=== PATIENT | male | born 1945 | race Caucasian/White ===

== ENCOUNTER 2016-11-29 07:46 | Inpatient (IN) | payer MEDICARE, OTHER ==
[2016-11-29] VITALS (12 sets, daily range): BP systolic 120–151; BP diastolic 57–78; PULSE 68–81; RESP 16–24; O2SAT 91–95
[~2016-11-29] VITALS: Ht 170.2 cm; Wt 133.9 kg
[~2016-11-29 07:46] MED LIST: ACLI400A2 IH; ALBU2.5V4 INHALATION; ALBU90AE IH; ASPI-973 PO; CLOP75TA3 PO; IPRA3AMP IH; LISI10TA PO; METO25TA6 PO; NITR0.4T6 SL; SIMV20TA4 PO; SYMINH INHALATION; [UNRECOGNIZED DRUG - OTHER]
[2016-11-29] MEDS ORDERED: Albuterol-Ipratropium 3 mL Inhalation Solution ONE (08:07)
--- NOTE | 2016-11-29 08:14 | ED.REPORT ---
HPI-General Illness Date of Service Nov 29, 2016 ED Provider: Kaden Duncan MD 71 year old male with a history of COPD on 3L home O2, bovine aortic valve replacement on ASA and Plavix and a former smoker who presents to the ED due to SOB that is worse with exertion that has been progressively worsening over the last 2 weeks. The symptoms are similar to previous COPD exacerbations. He has been using nebs at home with no improvement and Albuterol 3-4 times daily. Pt was started on Prednisone 2 days ago by his PCP for this and has had no improvement in symptoms. Pt denies fever, chills, CP, nausea and vomiting. Pt has had no recent illnesses. He has a Hx of colon cancer and reports slight abd pain. He has no hx of PE/DVT. Nursing Notes Stated Complaint: DIFFICULTY BREATHING Chief Complaint: Respiratory Complaints Nursing Notes Reviewed: Yes Allergies: Coded Allergies: aspirin (Verified Allergy, Severe, hives,swelling,itching (pt is taking 81 mg daily), 11/29/16) iodine (Verified Allergy, Severe, HIVES,SWELLING, 11/29/16) PATIENT SAYS ALLERGY IS TO SHELLFISH ONLY, NOT CONTRAST MEDIA Sulfa (Sulfonamide Antibiotics) (Unverified Allergy, Unknown, UNKNOWN, ) cephalexin (Unverified Allergy, Unknown, UNKNOWN, 11/29/16) venlafaxine (Unverified Allergy, Unknown, UNKNOWN, 11/29/16) Uncoded Allergies: EXPECTORANTS (Allergy, Unknown, UNKNOWN, 10/11/14) Nonsteroidal Anti-Inflammatory Agts (Allergy, Unknown, UNKNOWN, 10/11/14) Scheduled Aclidinium [place] (Tudorza Pressair) 400 Mcg Aer.pow.ba 400 MCG IH BID Albuterol Sulfate (Proair Respiclick) 90 Mcg Aer.pow.ba 90 MCG IH QID Aspirin (Aspirin) 81 Mg Tablet 81 MG PO DAILY Budesonide/Formoterol 160-4.5 mcg Inh (Symbicort 160-4.5 mcg Inh) 120 Puff Inhaler 1 PUFF INHALATION every 2 days in am a Clopidogrel Bisulfate (Plavix) 75 Mg Tablet 75 MG PO DAILY Lisinopril (Lisinopril) 10 Mg Tablet 10 MG PO DAILY Metoprolol Tartrate (Metoprolol Tartrate) 25 Mg Tablet 25 MG PO BID Nitroglycerin SL (Nitroglycerin SL) 0.4 Mg Tab.subl 0.4 MG SL ASDIRECTED Simvastatin (Simvastatin) 20 Mg Tablet 20 MG PO HS Scheduled PRN Albuterol Neb Soln (Albuterol Neb Soln) 2.5 Mg/3 Ml Vial.neb 2.5 MG INHALATION Q4H PRN PRN For Shortness of Breath Ipratropium/Albuterol Sulfate (Iprat-Albut 0.5-3(2.5) mg/3 mL Inhalant Soln) 3 Ml Ampul.neb 3 ML IH Q6 PRN PRN PRN Miscellaneous Medications ([CT scan premeds]) prednisone: 50mg, #3 take one tablet by mouth 13, 7, 1 hr prior to scan benadryl: 50mg, #1 take one tablet by mouth 1 hr prior to scan General Time Seen by MD: 08:09 Chief Complaint Breathing problem Hx Obtained From: Patient, Spouse Arrived By: Walk-in Onset Occurred: More than a week ago... (2 weeks) Symptom Duration: Since onset Severity: Current: No pain currently Associated with: Denies: Chest pain, Nausea, Vomiting Pertinent Negative: Relieved by nothing Past Medical History Past Medical History Colon cancer COPD on 3L home O2 TIARRA- on CPAP Paralized hemidiaphragm Reports: Asthma, Coronary artery disease, Hypertension Past Surgical History Hips Bovine aortic valve replacement Colon resection Reports: Angioplasty, Cataract surgery Smoking History Current Some Day Smoker Social History Other Social History: Ambulatory Status Independent Review of Systems Full Review of Systems Constitutional: Denies: Chills, Fever Respiratory: Reports: Dyspnea on exertion, Shortness of breath, Denies: Non-productive cough Cardiovascular: Reports: Dyspnea on exertion, Denies: Chest pain GI: Denies: Abdominal pain, Diarrhea, Nausea, Vomiting Skin: Denies Diaphoresis, Denies Rash Neurologic: Denies: Change LOC, Headache Complete sys rev & neg: except as marked. Physical Exam 93% on 3L by NC which is baseline Vital Signs Vital Signs Date Time Temp Pulse Resp B/P Pulse Ox O2 Delivery O2 Flow Rate FiO2 11/29/16 10:16 75 24 129/71 95 Nasal Cannula 3 11/29/16 09:30 75 22 141/61 93 Nasal Cannula 3 11/29/16 09:08 72 22 93 Nasal Cannula 11/29/16 09:00 72 20 142/57 93 Nasal Cannula 3 11/29/16 08:30 74 22 140/59 93 Nasal Cannula 3 11/29/16 08:12 76 23 93 Nasal Cannula 3 11/29/16 08:00 36.9 81 21 151/73 92 Nasal Cannula 3 Initial VS: Reviewed General/Constitutional: Awake, Alert, Cooperative Head / Eyes: Atraumatic, Normocephalic, PERRL Neck: Atraumatic, Full range of motion Respiratory: Significantly decreased breath sounds bilat Prolonged expiratory phase Expiratory wheezing Cardiovascular: Heart rate NL, Regular rhythm, Heart sounds NL, No gallop, No murmurs, No rubs, Cap refill not delayed, Peripheral circulation NL 1+ pitting edema to bilat LE about 2[address] up to the knees Abdomen: Soft, Non-tender, No guarding, No rebound, No distention Back: Atraumatic, Full range of motion Skin: No rash, Warm, Dry Neurologic: Oriented X3, Speech NL, No motor deficits Psychiatric: Affect NL, Mood NL Interpretation & Diagnostics Lab Results Interpretation Result Diagram: 11/29/16 0910 11/29/16 0910 Test 11/29/16 09:10 White Blood Count 8.5th/mm3 (3.8-10.1) Red Blood Count 4.60mil/mm3 (4.40-5.80) Hemoglobin 14.2g/dL (13.8-17.2) Hematocrit 43.7% (41.0-50.0) Mean Corpuscular Volume 95.0fL (81-100) Mean Corpuscular Hemoglobin 30.9pg (27.0-35.0) Mean Corpuscular Hemoglobin Concent 32.5% (32.0-37.0) Red Cell Distribution Width 13.8% (12.3-15.4) Platelet Count 157bil/L (150-400) Neutrophils (%) (Auto) 69.9% (40-74) Lymphocytes (%) (Auto) 18.6% (14-46) Monocytes (%) (Auto) 9.5% (4-12) Eosinophils (%) (Auto) 0.9% (0-5) Basophils (%) (Auto) 0.5% (0-3) Sodium Level 147mEq/L (134-144) Potassium Level 4.2mEq/L (3.5-5.2) Chloride Level 105mEq/L (97-108) Carbon Dioxide Level 29mmol/L (18-29) Blood Urea Nitrogen 24mg/dL (8-27) Creatinine 1.31mg/dL (0.76-1.27) Estimat Glomerular Filtration Rate 57mL/min (>59) Glucose Level 148mg/dL (60-99) Calcium Level 9.2mg/dL (8.5-10.1) Total Bilirubin 0.5mg/dL (0.0-1.2) Aspartate Amino Transf (AST/SGOT) 19U/L (0-50) Alanine Aminotransferase (ALT/SGPT) 33U/L (0-44) Alkaline Phosphatase 61U/L (25-160) Troponin T 0.010ug/L (0.0-0.011) Pro-B-Type Natriuretic Peptide 187.5pg/mL (0-376) Total Protein 6.3g/dL (6.4-8.4) Albumin 3.9g/dL (3.4-5.0) General Lab Results Interp 1: Labs reviewed ECG Interpretation ECG Interpretation: LAD, No ST segment changes, Inferior Q waves, Anteroseptal Q waves. No acute T wave abnormalities. No prior ECG for comparison. Time: 09:02 Interpreted by: ED physician Normal ECG Interpretation: Normal rate (71), Normal sinus rhythm X-Ray Chest Interpretation Chest Xray Interpretation: IMPRESSION: Chronic right hemidiaphragm elevation. Right basilar opacity may be pneumonia or atelectasis. Dictated by: Esteban Dias M.D. on 11/29/2016 at 9:20 View: Portable Interpretation / Wet Read by: Interpret - Radiologist Re-Eval/Medical Decision Med Decision/Clinical Course 71 year old male with a history of COPD on 3L home O2, bovine aortic valve replacement on ASA and Plavix and a former smoker who presents to the ED due to SOB that is worse with exertion that has been progressively worsening over the last 2 weeks despite recently being started on oral steroids and using his home inhalers. Upon arrival the patient appears to be in moderate respiratory distress with oxygen saturation in the low 80s on 3 L by nasal cannula which is his baseline requirement. He is otherwise hemodynamically stable. The patient was initially treated with the below medications 125 IV methylprednisone Azithromycin 600 PO DuoNeb treatments 3 Laboratory studies notable as below: CBC unremarkable NA 147 BUN 24 Creat 1.31 BNP WNL Troponin negative CMP Otherwise unremarkable Chest x-ray was obtained and demonstrated known elevated right hemidiaphragm with possible small focality of opacification. The above treatments patient reported mild symptom improvement though when ambulated on his baseline 3 L of oxygen he continued to desat into the 80s and became significantly dyspneic. Overall presentation was consistent with COPD exacerbation. I am unconvinced of focal bacterial pneumonia given absence of fever or leukocytosis. I considered cardiogenic causes however at this time EKG as interpreted by myself above is not convincing for acute ischemic process and initial screening troponin is negative. Chest x-ray chemistry is no pulmonary edema and BNP is not elevated. I feel the patient requires admission for further management of his COPD exacerbation and hypoxia. Patient was discussed with admitting hospitalist transferred in stable condition. Time of Eval: 08:36 Re-Evaluation/Progress Note: No significant improvement with neb treatment. Time of Eval: 09:35 Re-Evaluation/Progress Note: Desat to high 80 with ambulation Consultation : Referral / Consult Name: Everette Baig MD Consulted With: Hospitalist Call Returned at: 10:43 Personal Protection Specialist: Will see patient, Agrees with eval, Agrees with plan, Accepts admit Counseled Regarding: Diagnosis, Lab results, Need for admission Discharge & Departure Primary Impression: COPD exacerbation Additional Impressions: Hypoxia Respiratory distress History of tobacco abuse Lower extremity edema Laterality: bilateral Qualified Code: R60.0 - Localized edema Disposition: ADMITTED TO HOSPITAL Discharge Condition All VS Reviewed: Yes Referrals: Cleo Ellison MD (PCP) Crit Care Except Billable Proc Time Spent: 105-134 minutes Services Performed: Patient management by me, Time spent at bedside, Reviewing test results, Reviewing imaging, Discussing patient care, Documentation in record Scribe Attestation Portions of this note were transcribed by Brittany Neal. I, (Dr. Duncan) personally performed the history, physical exam and medical decision-making; I reviewed and confirmed the accuracy of the information in the transcribed note. Signed by: Brittany Neal. Prabhaibe, 11/29/2016, 1043 copies to: Cleo Ellison MD, Beck O MD Nov 29, 2016 08:14 Brittany Neal Nov 29, 2016 08:40
[2016-11-29] MEDS ORDERED: MethylprednisoLONE Sodium Succinate 62.5 mg/mL 2 mL Inj IVPUSH ONE (08:45)
[2016-11-29] MEDS ORDERED: Ondansetron 2 mg/mL 2 mL Inj IVPUSH PRN ×3 (08:50→11:35)
[2016-11-29] MEDS ORDERED: Albuterol-Ipratropium 3 mL Inhalation Solution NEB ONE (08:50)
[2016-11-29] MEDS ORDERED: Alum-Mag Hydrox-Simeth 30 mL Suspension PO PRN ×3 (08:50→11:35)
[2016-11-29] MEDS: Albuterol-Ipratropium 3 mL Inhalation Solution NEB SCH (09:06)
--- NOTE | 2016-11-29 09:21 | DRSVH ---
PROCEDURE: X-RAY CHEST ONE VIEW, PORTABLE ([id number]) INDICATIONS: breathing problems TECHNIQUE: One view of the chest was acquired. COMPARISON: [facility], CT, CT NECK CHEST ABD PELVIS W CON, 10/23/2016, 11:05. [facility] juliane, CR, CHEST 2VW, 09/01/2016, 10:56 AM. [facility], CR, CHEST 1VW (PORTABLE), 012, 14:46. FINDINGS: Surgical changes and devices: Sternotomy and a prosthetic heart valve. Lungs and pleura: There is chronic right hemidiaphragm elevation. Right basilar opacity may be infilt rate or atelectasis. No pleural effusions or pneumothorax. Lungs are clear. Mediastinum: Mediastinal contours appear normal. Heart size is normal. Bones and chest wall: No suspicious bony lesions. Overlying soft tissues appear unremarkable. IMPRESSION: Chronic right hemidiaphragm elevation. Right basilar opacity may be pneumonia or atelecta sis. Dictated by: Esteban Dias M.D. on 11/29/2016 at 9:20 Approved by: Esteban Dias M.D. on 11/29/2016 at 9:21
[2016-11-29 09:23] LABS: BASOPHILS % (AUTO) 0.5 % (0-3); EOSINOPHILS % (AUTO) 0.9 % (0-5); MONOCYTES % (AUTO) 9.5 % (4-12); Mean Corpuscular Hemoglobin 30.9 pg (27.0-35.0); NEUTROPHILS % (AUTO) 69.9 % (40-74); Platelet Count 157 bil/L (150-400)
[2016-11-29 09:57] LABS: TROPONIN T 0.01 ug/L (0.0-0.011)
[2016-11-29] MEDS ORDERED: Polyethylene Glycol (PEG) 17 Gm Powder PO PRN ×2 (10:45→11:35)
--- NOTE | 2016-11-29 11:05 | NUR ---
Admit Report received from ED nurse. Pt admitted to the floor from ED at 11:05. Pt SBA to bed from stretcher. 3L of oxygen in use. Pt A&O x 4. Pt exhibited SOB while transferring into bed. SOB was relieved once he was at rest. Med rec complete.
[2016-11-29] MEDS ORDERED: GABA-500 ORAL (11:32)
[2016-11-29] MEDS ORDERED: ATOR20TA65 ORAL (11:32)
[2016-11-29] MEDS ORDERED: PRE20 ORAL (11:42)
[2016-11-29] MEDS ORDERED: PRED50TA ORAL (11:44)
[2016-11-29 20:38] LABS: APPEARANCE,URINE CLEAR (CLEAR,HAZY); COLOR,URINE YELLOW (YELLOW); OCCULT BLOOD,URINE NEGATIVE (NEGATIVE); PH,URINE 5.5 (5.0-8.0); UROBILINOGEN,URINE NORMAL (NORMAL)
--- NOTE | 2016-11-29 22:57 | PCM.HPMED ---
Subjective Date of Service Nov 29, 2016 Primary Provider: Admitting Physician: Everette Baig MD Primary Care Physician: Cleo Ellison MD Attending Physician: Everette Baig MD Admit Status: From the Emergency Department, Admit to Red Team Chief Complaint: "My oxygen level drops when I go to the bathroom." History of Present Illness: Patient is a 71-year-old pleasant obese white male with history of COPD on 3 L of home O2 per nasal cannula and bovine aortic valve replacement on aspirin and Plavix who presents to [facility] emergency department due to shortness of breath is worse with exertion that has been progressively worsening over the last 2 weeks. The symptoms are somewhat her previous COPD exacerbations. He has been using nebulizers at home with no improvement and albuterol 3-4 times a day. Patient was started on prednisone 3 days ago by his primary care physician for this problem and has had no improvement in symptoms. Patient denies fever, chills, chest pain, nausea and vomiting, cough. He has had no recent illness. He does report that he has a history of colon cancer and more recent most recently a CAT scan showed "spots" in his abdomen. He was going to go for a another scan which he does not know the name of but could not hold his arms up in the air long enough for the procedure. Patient was evaluated by Dr. Kaden Duncan and had a chest x-ray which showed chronic right hemidiaphragm elevation with right basilar opacity which may be pneumonia or atelectasis. Patient received 125 mg of IV methylprednisolone, 600 mg of by mouth azithromycin and DuoNeb treatments 3 the above treatments repeated with the above treatment patient reported mild symptom improvement bone ambulated on his baseline 3 L of oxygen as he continued to desaturate into the 80s and became significantly dyspneic overall presentation was consistent with a COPD exacerbation and patient was admitted to the hospital service for further evaluation and treatment. Review of Systems: General: Patient has no fever no chills no sweats. He only complains of dyspnea on exertion. HEENT: Patient has no headache, patient has no diplopia, patient has no changes in vision. Does have a history of bilateral cataract surgery and glaucoma surgery. He had glaucoma surgery most recently and is currently off all drops and is scheduled to see his call center consultant on 12/17/2016. He does wear glasses. Patient has no problems with his ears nose or throat. Patient has known dental problems, as he wears upper dentures. Patient has no pharyngitis or history of thrush. Neck: Patient has no stiffness in the neck. Patient has no lymphadenopathy. Patient has no problems with his neck. Pulmonary: Patient has no cough, no expectoration of sputum. He has no pleurisy. Patient has no chest pain. Patient has a history of asthma as a child, and now has COPD. He was discovered to have right hemidiaphragm elevation even before his open heart surgery. He states he tried to fix his problem" during the open heart surgery but were unsuccessful. Cardiovascular: Patient has no chest pain. Patient has no palpitations. Patient has no history of myocardial infarction. Patient has a history of coronary disease and aortic valvular disease. Patient underwent coronary artery bypass graft surgery 2 along with bovine aortic valve replacement at a [facility] on 10/19/[address] Demetri Sherwood. Gastrointestinal: Patient has no history of hepatitis A, B or C. Patient has no history of peptic ulcer disease. Patient has no history of gastroesophageal reflux disease. Patient has no history of nausea, vomiting, or diarrhea. Patient has no history of hematemesis, hematochezia, or melena. Patient has no history of colitis. Renal: Patient has no history of chronic kidney disease. No history of kidney stones. However, approximately 8-10 years ago patient developed acute renal failure due to nausea vomiting and diarrhea. This was treated with IV re- hydration and patient kidney failure resolved. Genitourinary: Patient has no history of dysuria, frequency, or incontinence. Patient has no previous history of genitourinary problems. Musculoskeletal: Patient has no history of muscular skeletal problems. Neurologic: Patient has no history of stroke, no history of seizure, no history of TIA. Psychiatric: Patient has no history of psychiatric problems. The remainder of the complete review of systems was reviewed with patient and is as mentioned above otherwise negative. Allergies Coded Allergies: aspirin (Verified Allergy, Severe, hives,swelling,itching (pt is taking 81 mg daily), 11/29/16) iodine (Verified Allergy, Severe, HIVES,SWELLING, 11/29/16) PATIENT SAYS ALLERGY IS TO SHELLFISH ONLY, NOT CONTRAST MEDIA Sulfa (Sulfonamide Antibiotics) (Unverified Allergy, Unknown, UNKNOWN, ) cephalexin (Unverified Allergy, Unknown, UNKNOWN, 11/29/16) venlafaxine (Unverified Allergy, Unknown, UNKNOWN, 11/29/16) Uncoded Allergies: EXPECTORANTS (Allergy, Unknown, UNKNOWN, 10/11/14) Nonsteroidal Anti-Inflammatory Agts (Allergy, Unknown, UNKNOWN, 10/11/14) Home Medications Scheduled medications: Aclidinium [place] (Tudorza Pressair) 400 Mcg Aer.pow.ba 400 MCG IH BID Albuterol Sulfate (Proair Respiclick) 90 Mcg Aer.pow.ba 90 MCG IH QID Aspirin (Aspirin) 81 Mg Tablet 81 MG PO DAILY Budesonide/Formoterol 160-4.5 mcg Inh (Symbicort 160-4.5 mcg Inh) 120 Puff Inhaler 1 PUFF INHALATION every 2 days in am a Clopidogrel Bisulfate (Plavix) 75 Mg Tablet 75 MG PO DAILY Lisinopril (Lisinopril) 10 Mg Tablet 10 MG PO DAILY Metoprolol Tartrate (Metoprolol Tartrate) 25 Mg Tablet 25 MG PO BID Nitroglycerin SL (Nitroglycerin SL) 0.4 Mg Tab.subl 0.4 MG SL ASDIRECTED Simvastatin (Simvastatin) 20 Mg Tablet 20 MG PO HS PMH Colon cancer diagnosed approximately 3 years ago. Patient underwent colon resection and was placed on "pills" by Dr. Foss who most recently did a CAT scan and found more spots" COPD on 3L home O2 with hypoxia with any exertion TIARRA- on CPAP at home and patient is compliant. His brought in his CPAP machine for use here in the hospital. Paralized right hemidiaphragm, etiology unknown. History of Asthma as a child. Coronary artery disease, ports history of stent placement and then bypass or "fixing his stents". Hypertension Surgical History Patient reports bilateral Hip replacement surgery. However, his left leg is slightly shorter than his right leg. This surgery was performed in assembly line fashion in a hospital in [facility]. Bovine aortic valve replacement at the [facility] in [facility] and [place]. Patient reports stent replacement surgery and/ or bypass surgery as well. Colon resection approximately 3 years ago. Coronary artery Angioplasty with stent placement in the past. History of bilateral Cataract surgery History of glaucoma surgery recently. Patient just recently finished taking his eyedrops and has a follow-up appointment 12/17/2016 Family History Patient mother at the age of 38 from a infection, after delivering the patient. Patient's father at 56 from a stroke and heart disease Patient had 5 brothers to have . One from complications of a stroke , the other after a leg amputation. Patient had 2 sisters one of complications from diabetes mellitus Social History Hx Alcohol Use: Yes (The patient will occasionally have a beer or a mixed drink approximately 1-2 per week he prefers rum and coke or beer.) Hx Substance Use: No Hx Tobacco Use: Yes (Quit one month ago. ) Smoking Status: Former Smoker (The patient quit smoking 15-20 years ago. He smoked 1 pack per day for 8-10 years.) Living Arrangement: with Family Additional Information Patient was raised in the [place] area and went to [employer]. 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 He worked for [employer] for some period time and then worked for the [employer] for 18 years. 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 He rarely drinks alcohol possibly a beer or rum and Coke once or twice a week. He was to his first for 38 years. They adopted 2 children. The marriage ended after the patient discovered that his was constantly traveling and purchasing items while he was left at home to work. He has been to his second for 10 years. He used to winter in [facility], however no longer does so. He has never had valley fever. Exam Vital Signs Vital Sign - Last Date Time Temp Pulse Resp B/P Pulse Ox O2 Delivery O2 Flow Rate FiO2 11/29/16 19:55 36.4 68 16 148/78 91 Nasal Cannula 2.00 Exam General: Patient is in no apparent distress and is lying supine in bed with head elevated approximately 10-20. HEENT: Head is atraumatic normocephalic. Eyes: Pupils are equally round and reactive to light and accommodation. Extraocular muscles are intact. Sclera are white anicteric. Subconjunctival mucosa is pink. Ears and nose are unremarkable. Oropharynx: There is no mucosal lesions, there is no thrush, there is no pharyngitis. There is a upper plate of dentures in place. Neck: Is supple, there are no nodes, or masses or tenderness. Chest: Is clear to auscultation and percussion. There are no rales, rhonchi, wheezes or rubs. Heart: Rate, rhythm is regular. There is no murmur, rub or gallop. Abdomen: Good bowel sounds are present. Abdomen is soft, nontender, no organomegaly or masses were appreciated. Extremities: Are symmetrical and well perfused. There is no edema, there is no cellulitis, no rash. Neurologic: There are no focal neurological deficits. Cranial nerves II through XII are intact. There are no sensory or motor deficits. Psychiatric: Patients mood is calm and shows no sign of agitation. Genital: Deferred Rectal: Deferred Lab and Diagnostics Result Diagram: 11/29/1690911/29/16909 Microbiology Blood cultures are pending X-Rays, CTs and MRIs PROCEDURE: X-RAY CHEST ONE VIEW, PORTABLE ([id number]) INDICATIONS: breathing problems TECHNIQUE: One view of the chest was acquired. COMPARISON: [facility], CT, CT NECK CHEST ABD PELVIS W CON, 2015, 11:05. [facility], CR, CHEST 2VW, 09/01/2016, 10:56 AM. [facility], , CHEST 1VW (PORTABLE), 06/27/2012, 14:46. FINDINGS: Surgical changes and devices: Sternotomy and a prosthetic heart valve. Lungs and pleura: There is chronic right hemidiaphragm elevation. Right basilar opacity may be infiltrate or atelectasis. No pleural effusions or pneumothorax. Lungs are clear. Mediastinum: Mediastinal contours appear normal. Heart size is normal. Bones and chest wall: No suspicious bony lesions. Overlying soft tissues appear unremarkable. IMPRESSION: Chronic right hemidiaphragm elevation. Right basilar opacity may be pneumonia or atelectasis. Dictated by: Esteban Dias M.D. on 11/29/2016 at 9:20 Approved by: Esteban Dias M.D. on 11/29/2016 at 9:21 PROCEDURE: CT NECK/CHEST/ABD/PEL W/CONT ([id number]) INDICATIONS: H/O COLON CANCER, RIGHT SUPRACLAVICULAR NODE TECHNIQUE: After the administration of oral and intravenous contrast, 3.0 mm axial sections acquired from the sella to the aortic arch, with 3.0 mm thick coronal reformats. Additional oblique axial 3.0 mm sections acquired through the pharynx. 5 mm thick axial sections then acquired from the lung apices to the symphysis, with subsequent 5 mm thick coronal and sagittal reformats, and 7 mm thick coronal MIP reformats through the lungs. For radiation dose reduction, the following was used: automated exposure control, adjustment of mA and/or kV according to patient size. COMPARISON: CT abdomen and pelvis 02/15/2016; CT CAPD 10/15/2015; CT chest 2013; CT abdomen and pelvis 09/22/2014 FINDINGS: Image quality: Excellent. NECK: Lymph nodes: No enlarged lymph nodes seen throughout the neck. There is a 9 mm short diameter level III node adjacent to the right internal jugular vein. BB marker over a palpable node in the right supraclavicular region shows a 7 mm short diameter fat replaced lymph node in the subadjacent tissues. Vessels: Visualized vasculature appears patent. Neck spaces: The oropharynx, nasopharynx, and pharynx demonstrate no mucosal lesions. The vocal cords, false vocal cords, pyriform sinuses, epiglottis, vallecular, and tongue base all appear normal. Extramucosal neck spaces appear unremarkable. Glands: Parotid and submandibular glands appear normal. Thyroid gland appears normal. Miscellaneous: Visualized brain and orbits appear unremarkable. Superficial soft tissues appear normal. Visualized sinuses and mastoids are clear. CHEST: Lungs and pleura: No acute airspace opacities. 3 mm pulmonary nodule in the posterior right upper lobe is unchanged from 2012. Atelectasis/scarring right lower lobe, associated with elevated right hemidiaphragm. Calcified granulomata. No pleural effusions or pneumothorax. Central and peripheral airways are patent and normal in caliber. Mediastinum: Heart size is normal. Coronary artery calcifications. No pericardial effusion. No mediastinal or hilar adenopathy by size criteria. Thoracic aorta and central pulmonary arteries are normal in size. Esophagus is normal in size. No hiatal hernia. Chest wall: Median sternotomy. No axillary adenopathy by size criteria. ABDOMEN: Solid organs: Liver and spleen are normal in size. Liver shows homogeneous decreased attenuation. No suspicious filling defects. Gallbladder appears clear. Biliary system is non dilated. Pancreas enhances normally. No adrenal nodules. Both kidneys are normal in size and enhancement, without hydronephrosis. 3 cm and 10 cm exophytic simple cyst upper pole right kidney and 1 cm cortical cyst right interpolar region. Peritoneum and bowel: Bowel loops are normal in caliber and wall thickness. Status post partial right hemicolectomy with no recurrent tumor around the anastomosis. Circumscribed fat filled area in the right lower quadrant compatible with chronic fat necrosis. No free fluid or air. Nodes and vessels: There is a 24 mm mesenteric lymph node anterior to the head of pancreas, series 2/image 67, increased from 15 mm on exam of 09/22/2014 and measuring 12 mm on 02/15/2016. A left para-aortic lymph node, image 74, measures 16 mm, new since prior 2014 exam, and increased from [address] Aorta and inferior vena cava are normal in caliber. Miscellaneous: No ventral hernias. PELVIS: Genitourinary: Bladder wall thickness is normal. Pelvic artifact from bilateral total hip prostheses. Visualized prostate and seminal vesicles appear normal. Miscellaneous: No inguinal hernias or adenopathy. Bones: No suspicious bony lesions. No vertebral body compression fractures. IMPRESSION: 1. No cervical adenopathy suggestive of metastatic disease. 2. Benign 3 mm right upper lobe pulmonary nodule is again unchanged. 3. Elevation right hemidiaphragm with compressive atelectasis right lower lobe is unchanged. 4. Enlarged mesenteric and periaortic lymph nodes are of concern for anoop metastases. PET/CT imaging suggested. 5. Status post right colon resection. Focal area of fat necrosis right lower quadrant. 6. Benign cystic changes right kidney. Dictated by: David Marrero M.D. on 10/23/2016 at 12:30 Approved by: David Marrero M.D. on 10/23/2016 at 12:30 Assessment & Plan Patient is a 71-year-old pleasant obese white male with history of COPD on 3 L of home O2 per nasal cannula and bovine aortic valve replacement on aspirin and Plavix who presents to [facility] emergency department due to shortness of breath is worse with exertion that has been progressively worsening over the last 2 weeks. The symptoms are somewhat her previous COPD exacerbations. He has been using nebulizers at home with no improvement and albuterol 3-4 times a day. Patient was started on prednisone 3 days ago by his primary care physician for this problem and has had no improvement in symptoms. Patient denies fever, chills, chest pain, nausea and vomiting, cough. He has had no recent illness. He does report that he has a history of colon cancer and more recent most recently a CAT scan showed "spots" in his abdomen. He was going to go for a another scan which he does not know the name of but could not hold his arms up in the air long enough for the procedure. Patient was evaluated by Dr. Kaden Duncan and had a chest x-ray which showed chronic right hemidiaphragm elevation with right basilar opacity which may be pneumonia or atelectasis. Patient received 125 mg of IV methylprednisolone, 600 mg of by mouth azithromycin and DuoNeb treatments 3 the above treatments repeated with the above treatment patient reported mild symptom improvement bone ambulated on his baseline 3 L of oxygen as he continued to desaturate into the 80s and became significantly dyspneic overall presentation was consistent with a COPD exacerbation and patient was admitted to the hospital service for further evaluation and treatment. Increased Hypoxia with dyspnea on exertion with history of COPD on 3 L of oxygen per nasal cannula at home. This is consistent with acute on chronic respiratory failure. -History of valve replacement and coronary disease and slight elevation in BNP, would be concerned about congestive heart failure. Check repeat BNP and echocardiogram in a.m. -With History of colon cancer might be concerned about pulmonary embolism so will check CT angiogram of the chest. -Suspect this is due to acute on chronic respiratory failure secondary to an exacerbation of COPD with elevated right hemidiaphragm and right lower lobe compressive atelectasis with little room for preserved. -Continue IV SoluMedrol 60 mg IV every 6 hours -Continue Azithromycin 500 mg IV daily-continue SVN treatments History of colon cancer with most recent CT scan showing some mesenteric lymphadenopathy. -Patient will need follow-up PET/CT scan as an outpatient -Check d-dimer as patient may have a hypercoagulable state Obstructive sleep apnea -Continue CPAP as at home Hypertension -Continue home metoprolol and lisinopril. -Continue to monitor History of asthma as a child -Continue current treatment as above History of coronary artery disease -No evidence for acute coronary syndrome as of yet -will check troponin again in a.m. -Continue to monitor closely Disposition: As patient is likely to be here more than 2 nights to evaluate and treat the above problems, will admit as an inpatient. Pain Evaluation: Adequate Pain Control GI Prophylaxis: Proton Pump Inhibitor VTE Prophylaxis: Sub-Q Enoxaparin VTE Mechanical Devices: Venous Foot Pump Resuscitation Status: CPR: Attempt Resuscitation Everette Baig MD Nov 29, 2016 22:57
[2016-11-30] VITALS (9 sets, daily range): BP systolic 107–160; BP diastolic 69–86; PULSE 56–68; RESP 16–20; O2SAT 90–97
[2016-11-30] MEDS: MethylprednisoLONE Sodium Succinate 62.5 mg/mL 2 mL Inj IVPUSH SCH ×4 (00:52→19:45)
[2016-11-30] MEDS ORDERED: Albuterol-Ipratropium 3 mL Inhalation Solution NEB SCH (02:30)
--- NOTE | 2016-11-30 02:39 | NUR ---
IV Per report, pt is very hard stick for IVs and if IV goes bad, IV therapy will have to place. At start of shift at 2100, IV flushed well with no pain or evidence of infiltration. At 0100, attempted to flush IV. No resistance met, but pt c/o pain when flushing. Swelling at and above IV site noted, stopped flushing. Heat pack applied. Unable to visualize or feel potential IV start sites. Withheld 0230 solumedrol r/t no IV site access. Will call IV therapy at 0600 for replacement for antibiotics at 0830. Hourly rounding in place.
[2016-11-30] MEDS: Albuterol-Ipratropium 3 mL Inhalation Solution NEB SCH ×4 (04:03→20:37)
[2016-11-30] MEDS ORDERED: Albuterol 2.5 mg/3 mL Inhalation Solution NEB PRN (07:00)
[2016-11-30 07:09] LABS: BASOPHILS % (AUTO) 0.2 % (0-3); EOSINOPHILS % (AUTO) 0 % (0-5)
[2016-11-30 07:41] LABS: Magnesium 2.1 mg/dL (1.6-2.6); Phosphorus 3.8 mg/dL (2.5-4.9)
[2016-11-30 07:55] LABS: MONOCYTES % (AUTO) 8.1 % (4-12); Mean Corpuscular Volume 94.8 fL (81-100); NEUTROPHILS % (AUTO) 78.7 % (40-74); Platelet Count 132 bil/L (150-400)
[2016-11-30 08:12] LABS: INR 0.96 ratio
[2016-11-30] MEDS ORDERED: Azithromycin Inj 500 MG in Dextrose 5% w/Vial Mate 250 ML IV SCH (08:30)
[2016-11-30 08:38] LABS: ERYTHROCYTE SEDIMENTATION RATE 8 mm/hr (0-30)
[2016-11-30] MEDS: Pantoprazole 40 mg ER24 Tablet PO SCH (08:53)
[2016-11-30] MEDS: Tiotropium 18mcg/Cap 5 Capsule Inhaler Kit INHALATION SCH (08:53)
--- NOTE | 2016-11-30 10:34 | DRSVH ---
PROCEDURE: X-RAY CHEST, TWO VIEWS ([id number]) INDICATIONS: Hypoxia and Dyspnea TECHNIQUE: 2 views of the chest were acquired. COMPARISON: None. FINDINGS: Surgical changes and devices: Median sternotomy. Lungs and pleura: No pleural effusions or pneumothorax. Right hemidiaphragm is elevated, as before. Lungs are clear. Mediastinum: Mediastinal contours are normal. Heart size is normal. Bones and chest wall: No suspicious bony abnormalities. Soft tissues appear unremarkable. IMPRESSION: No acute process. Dictated by: Christen Hatfield M.D. on 11/30/2016 at 10:32 Approved by: Christen Hatfield M.D. on 11/30/2016 at 10:32
[2016-11-30] MEDS: Furosemide 10 mg/mL 2 mL Inj IVPUSH SCH (11:26)
--- NOTE | 2016-11-30 13:57 | DRSVH ---
PROCEDURE: NM LUNG VQ RADIOPHARMACEUTICAL: 24.5 mCi Tc-99m DTPA aerosol by inhalation and 5.2 mCi Tc-99m MAA intravenously. INDICATIONS: Hypoxia and Dyspnea TECHNIQUE: Ventilation images were obtained first with Tc-99m DTPA aerosol. Subsequently, perfusion images were acquired after intravenous injection of Tc-99m MAA. Anterior, posterior, CHAUDHARY, MARCELO, RPO, LPO, left and right lateral views were obtained. COMPARISON: [facility], CR, XR CHEST 2VW, 11/30/2016, 10:40. FINDINGS: Mildly heterogeneous ventilation and perfusion is present in the perihilar locations. Venti lation and perfusion is otherwise within normal limits. IMPRESSION: Low probability for pulmonary embolus. Dictated by: Christen Hatfield M.D. on 11/30/2016 at 13:54 Approved by: Christen Hatfield M.D. on 11/30/2016 at 13:55
--- NOTE | 2016-11-30 14:31 | NUR ---
Pt off floor Pt off floor for chest xray at 1100. Pt off floor at 0100 to Nuclear medicine for his VQ Scan.
--- NOTE | 2016-11-30 14:49 | NUR ---
Social Work Note: Initial Assessment Data& Assessment: EMR reviewed. SW met with pt and pt at bedside to discuss discharge planning, SW role explained. Benedicto Mackey is a 71 year old male admitted on 11/29/2016 for COPD exacerbation. Pt has Medicare and [facility] [employer] insurance coverage. Pt sees Cleo Ellison MD for primary care. Pt lives in [place] with his spouse and is independent at baseline. Pt is independent in his room at this time. Pt does not use any DME at baseline but his home does have a ramp built in to enter the home and pt does use a mechanical hand held warranty administrator to grab things on the floor to avoid bending over. Pt was interested in obtaining a new piece of that equipment. SW provided pt with DME list and suggested they see if [facility] has any equipment similar to that available. SW did explain to pt that that piece of equipment would likely be private pay if they had it available. Pt also wears 2-3L of 02 at baseline through [employer]. Pt explained he is having trouble with his portable pack. SW attempted to call [employer], but only their answering service was available and was not able to provide detailed information. SW to follow up with Harman Yee tomorrow (Thursday12/01/2016) regarding pt portable pack and notify them that pt is having issues with the pack. Pt does not have a HH or SNF hx. Pt does not have LTC insurance or VA benefits. Pt drives at baseline. Pt has DPOA paperwork completed, SW requested a copy when possible. Pt able to transport pt home when medically ready. Pt and pt denies any other needs at this time. SW to continue to follow if any needs arise. Plan: Anticipated discharge home via POV when medically ready. Pt and pt denies any other needs at this time. SW to continue to follow if any needs arise. KACEY Marrero Addendum: 11/30/16 at 1457 by LAURENT TUCKER Amended: Links added.
--- NOTE | 2016-11-30 15:53 | DRSVH ---
[facility] [address] [place] [address] Echocardiogram Report Name: GLORIA RIVAS Study Date: 11/30/2016 Jannet ht: 66 in Hospital Exam Location: [facility] [place] ht: 295 lb Gender: Male BSA: 2.4 m2 : 1945 Age: 71 yrs BP: 130/76 mmHg Reason For Study: Hypoxia History: CAD, AVR-bioprosthetic Ordering Physician: [facility] Performed By: Shani Olivo Referring Physician: DR. Keren REINA, DR. Indira ROMAN Interpretation Summary The study quality was technically difficult. The left ventricle is normal in size. The ejection fraction is estimated to be 50-55%. There is septal wall hypokinesis. Compared to the prior exam, the left ventricular function is reduced. The right ventricle is not well visualized. Right ventricular systolic function is moderately reduced. Right ventricular systolic function has decreased since previous exam. There is a bioprosthetic aortic valve. The prosthetic aortic valve is not well visualized. The peak aortic velocity is 2.57 m/sec. The peak aortic velocity on the previous exam was 2.6 m/sec. The aortic valve mean gradient is 15.2 mmHg. Procedure: A two-dimensional transthoracic echocardiogram with color flow and Doppler was performed. The study quality was technically difficult. Comparison is made with the echocardiogram of 10/17/2014. A contrast injection of Definity was performed to improve assessment of LV function. The patient did well with the Definity. The patient was in normal sinus rhythm during the exam. The patient was in first degree heart block during the exam. The patient had occasional PVCs during the exam. Left Ventricle: The left ventricle is normal in size. Left ventricular wall thickness is mild-moderately increased. Proximal septal thickening is noted. The ejection fraction is estimated to be 50-55%. Compared to the prior exam, the left ventricular function is reduced. There is septal wall hypokinesis. Assessment of diastolic parameters suggests a pseudonormalization pattern, consistent with elevated filling pressures. The deceleration time of the mitral E wave is shortened, with a value < 160 msec. Right Ventricle: The right ventricle is not well visualized. Right ventricular systolic function is moderately reduced. Right ventricular systolic function has decreased since previous exam. Atria: The left atrium is mildly dilated. Right atrial size is normal. The interatrial septum is intact with no evidence for an atrial septal defect. There is no Doppler evidence for an interatrial shunt. Mitral Valve: The mitral valve leaflets appear mildly thickened, but open well. There is mild mitral annular calcification. The mitral valve is not well visualized. There is trace mitral regurgitation. Aortic Valve: There is a bioprosthetic aortic valve. The prosthetic aortic valve is not well visualized. The peak aortic velocity is 2.57 m/sec. The peak aortic velocity on the previous exam was 2.6 m/sec. The aortic valve mean gradient is 15.2 mmHg. No aortic regurgitation is present. Tricuspid Valve: The tricuspid valve is not well visualized, but is grossly normal. Pulmonary artery pressures cannot be estimated because of the lack of a measurable TR jet velocity. There is trace tricuspid regurgitation. Pulmonic Valve: The pulmonic valve is not well visualized. Great Vessels: The aortic root is normal size. The ascending aorta is mildly enlarged. The aortic arch could not be visualized. The inferior vena cava was not visualized. Pericardium/ Pleura There is no pericardial effusion. MMode/2D Measurements & Calculations LVIDd: 4.8 cm RA long axis Ao root diam LVIDs: 3.5 cm LA A2 area: 25.6 cm FS: 27.4 % LA A4 area: 21.4 cm RA area asc Aorta EPSS: 0.74 cm LA length (vol): 6.1 cm Diam: 3.8 cm IVSd: 1.3 cm LA vol: 76.6 ml : 17.5 cm LVPWd: 1.2 cm LA vol index RA vol: 52.5 ml RA : 32.1 ml/m2 : 22.0 mm2 LV teran. diameter/BSA LV sys. diameter/BSA RVD1 (basal) TAPSE: 1.1 cm (cm/m^2): 2.0 (cm/m^2): 1.5 Doppler Measurements & Calculations Ao V2 max MV E max ray MV E/A: 1.2 PA V2 max : 257.5 cm/sec : 104.7 cm/sec Med Peak E' Ray : 70.0 cm/sec Ao max PG MV A max ray PA mean PG : 26.5 mmHg : 89.6 cm/sec E/E' med: 22.1 Ao mean PG MV P1/2t: 47.1 msec MV A dur: 0.12 sec PA Accel Time : 15.2 mmHg : 0.09 sec LVOT Max Ray : 68.3 cm/sec sev ratio MV dec time MV P1/2t max ray Ao V2 mean LV V1 max PG : 0.17 sec : 182.4 cm/sec MVA(P1/2t): 4.7 cm2 Ao V2 VTI: 54.6 cm LV V1 VTI : 15.5 cm PA V2 mean : 50.5 cm/sec Reading Physician:PM
[2016-11-30] MEDS ORDERED: 0.9% Sodium Chloride 1,000 ML IV SCH (16:40)
[2016-12-01] MEDS: MethylprednisoLONE Sodium Succinate 62.5 mg/mL 2 mL Inj IVPUSH SCH ×2 (02:01→07:43)
[2016-12-01] MEDS: Nystatin 100,000 Unit/Gm 15 Gm Powder TOPICAL SCH ×2 (02:02→08:39)
[2016-12-01] MEDS: Albuterol-Ipratropium 3 mL Inhalation Solution NEB SCH ×3 (03:11→14:32)
[2016-12-01 03:12] VITALS: PULSE 65; RESP 18; O2SAT 95
[2016-12-01 04:41] VITALS: BP 112/68; PULSE 68; RESP 18; O2SAT 92
[2016-12-01 07:30] LABS: BASOPHILS % (AUTO) 0.1 % (0-3); EOSINOPHILS % (AUTO) 0.1 % (0-5); MONOCYTES % (AUTO) 2.7 % (4-12); Mean Corpuscular Hemoglobin 30.5 pg (27.0-35.0); Mean Corpuscular Volume 93.5 fL (81-100); Platelet Count 158 bil/L (150-400)
[2016-12-01 07:38] LABS: INR 0.98 ratio
[2016-12-01] MEDS: Furosemide 10 mg/mL 2 mL Inj IVPUSH SCH (07:43)
[2016-12-01] MEDS: Tiotropium 18mcg/Cap 5 Capsule Inhaler Kit INHALATION SCH (07:43)
[2016-12-01] MEDS: Pantoprazole 40 mg ER24 Tablet PO SCH (07:44)
[2016-12-01 08:30] VITALS: BP 124/60; PULSE 64; RESP 18; O2SAT 93
--- NOTE | 2016-12-01 08:40 | NUR ---
IV IV site on R hand was burning. IV antibiotic stopped. Left NS TKO, pt didn't complain of burning with that. Paged Dr Baig, requested switching to oral meds. Dr Baig said he would change the orders to oral for next doses. Pt A&O x 4. Sitting on edge of bed. Breathing good when seated, labored when he moves around. Pt was on RA when VS were taken, 94%.
[2016-12-01 08:47] VITALS: PULSE 68; RESP 16; O2SAT 93
--- NOTE | 2016-12-01 11:44 | NUR ---
JOHN signed. Julia Brewer TMD TEACHER ASSISTANT [employer]orer [employer] KACEY Tirado
[2016-12-01] MEDS ORDERED: predniSONE 20 mg Tablet PO SCH (12:00)
--- NOTE | 2016-12-01 12:31 | PCM.DIMED ---
Discharge Instructions Date of Service Dec 01, 2016 Dates of Hospitalization Nov 29, 2016 at 10:17 Discharge Diagnosis Discharge Diagnosis Congestive Heart failure with Hypoxia Diet Heart Healthy Activity No restrictions (May increase gradually as tolerated) Call your provider Fever or Chills, Shortness of breath, Bleeding, Chest pain, Vomitting, Excessive diarrhea, Weakness (unilateral), Other Patient Instructions Follow-up Provider: Cleo Ellison MD Follow-up with PCP in: 1 week (Patient needs cardiology follow up.) Everette Baig MD Dec 01, 2016 12:31
[2016-12-01] MEDS ORDERED: FUR20 PO (12:37)
[2016-12-01] MEDS ORDERED: PRED-508 PO (12:37)
[2016-12-01] MEDS ORDERED: ZIT250 PO (12:37)
[2016-12-01 13:00] VITALS: BP 106/66; PULSE 65; RESP 20; O2SAT 90
--- NOTE | 2016-12-01 13:15 | NUR ---
Social Work Note Discharge Note: D/A: Pt reported to SHEILA on 11/30/16 that he is having issues with his portable oxygen pack from [facility]. SW attempted to contact the company but was only able to reach their answering services. SHEILA followed up with [employer] on 12/01/2016 and provided the company with the Pt's name and phone numbers regarding this concern. SW followed up with Pt later in the day and had already been contacted by [employer] at that point. Pt explained that he will be following up with [facility] after his discharge this afternoon. SW also followed up with Pt regarding DPOA. Pt reported that he has DPOA paperwork at home and that his can bring it in today. No additional needs identified at this time. SW to follow if additional needs arise. P: Pt to discharge home today via family POV. [employer] contacted regarding Pt's portable oxygen pack concerns, provided company with Pt's name and phone numbers. Pt now in communication with [facility] for follow-up services. DPOA paperwork requested. No additional needs identified at this time. SW to follow if additional needs arise. Julia Dong MSW Grocery Worker [employer] Tirado
[2016-12-01 14:32] VITALS: PULSE 63; RESP 16; O2SAT 92
--- NOTE | 2016-12-01 15:20 | NUR ---
Discharge IV removed, catheter intact. Pt A&O at time of discharge. On RA. Pt discharge paperwork, and medications understood. Follow up appointments made for pt. All belongings accounted for. W/C by staff to car where was picking him up.
--- NOTE | 2016-12-01 23:14 | PCM.PNMED ---
Subjective Date of Service Dec 01, 2016 Subjective The patient is beginning to feel a bit better after his first dose of Lasix. He is breathing a little bit easier. Exam Vital Signs Vital Sign - Last Date Time Temp Pulse Resp B/P Pulse Ox O2 Delivery O2 Flow Rate FiO2 12/01/16 14:32 63 16 92 Room Air 12/01/16 13:00 36.8 106/66 12/01/16 03:12 2.00 11/30/16 04:04 28 Intake and Output 11/30/16 11/30/16 12/01/16 Cumulative From/Thru 15:00 23:00 07:00 11/29/16 08:00 - 12/01/16 04:41 Intake Total 700 ml 90 ml 1987 ml Output Total 100 ml 825 ml 450 ml 2125 ml Balance -100 ml -125 ml -360 ml -138 ml Intake Oral 700 ml 1897 ml IV Total 90 ml 90 ml Output Urine Total 100 ml 825 ml 450 ml 2125 ml # Voids 1 1 Exam General: Patient is in no apparent distress and is lying supine in bed. HEENT: Head is atraumatic normocephalic. Eyes: Pupils are equally round and reactive to light and accommodation. Extraocular muscles are intact. Sclera are white anicteric. Subconjunctival mucosa is pink. Ears and nose are unremarkable. Oropharynx: There is no mucosal lesions, there is no thrush, there is no pharyngitis. There is a upper plate of dentures in place. Neck: Is supple, there are no nodes, or masses or tenderness. Chest: Is clearer to auscultation and percussion so for decreased breath sounds at the right base as before. There are no rales, rhonchi, wheezes or rubs. Again there is decreased breath sounds at the right base as before. Heart: Rate, rhythm is regular. There is no new murmur, rub or gallop. Abdomen: Good bowel sounds are present. Abdomen is obese, soft, nontender, no organomegaly or masses were appreciated. Extremities: Are symmetrical and well perfused. There is no edema, there is no cellulitis, no rash. Neurologic: There are no focal neurological deficits. Cranial nerves II through XII are intact. There are no sensory or motor deficits. Psychiatric: Patients mood is calm and shows no sign of agitation. Genital: Deferred Rectal: Deferred Lab and Diagnostics Result Diagram: 12/01/16 0710 12/01/16 0710 Microbiology Blood cultures are pending X-Rays, CTs and MRIs PROCEDURE: X-RAY CHEST ONE VIEW, PORTABLE ([id number]) INDICATIONS: breathing problems TECHNIQUE: One view of the chest was acquired. COMPARISON: [facility], CT, CT NECK CHEST ABD PELVIS W CON, 2015, 11:05. [facility], CR, CHEST 2VW, 09/01/2016, 10:56 AM. [facility], CR, CHEST 1VW (PORTABLE), 06/27/2012, 14:46. FINDINGS: Surgical changes and devices: Sternotomy and a prosthetic heart valve. Lungs and pleura: There is chronic right hemidiaphragm elevation. Right basilar opacity may be infiltrate or atelectasis. No pleural effusions or pneumothorax. Lungs are clear. Mediastinum: Mediastinal contours appear normal. Heart size is normal. Bones and chest wall: No suspicious bony lesions. Overlying soft tissues appear unremarkable. IMPRESSION: Chronic right hemidiaphragm elevation. Right basilar opacity may be pneumonia or atelectasis. Dictated by: Esteban Dias M.D. on 11/29/2016 at 9:20 Approved by: Esteban Dias M.D. on 11/29/2016 at 9:21 PROCEDURE: CT NECK/CHEST/ABD/PEL W/CONT ([id number]) INDICATIONS: H/O COLON CANCER, RIGHT SUPRACLAVICULAR NODE TECHNIQUE: After the administration of oral and intravenous contrast, 3.0 mm axial sections acquired from the sella to the aortic arch, with 3.0 mm thick coronal reformats. Additional oblique axial 3.0 mm sections acquired through the pharynx. 5 mm thick axial sections then acquired from the lung apices to the symphysis, with subsequent 5 mm thick coronal and sagittal reformats, and 7 mm thick coronal MIP reformats through the lungs. For radiation dose reduction, the following was used: automated exposure control, adjustment of mA and/or kV according to patient size. COMPARISON: CT abdomen and pelvis 02/15/2016; CT CAPD 10/15/2015; CT chest 2013; CT abdomen and pelvis 09/22/2014 FINDINGS: Image quality: Excellent. NECK: Lymph nodes: No enlarged lymph nodes seen throughout the neck. There is a 9 mm short diameter level III node adjacent to the right internal jugular vein. BB marker over a palpable node in the right supraclavicular region shows a 7 mm short diameter fat replaced lymph node in the subadjacent tissues. Vessels: Visualized vasculature appears patent. Neck spaces: The oropharynx, nasopharynx, and pharynx demonstrate no mucosal lesions. The vocal cords, false vocal cords, pyriform sinuses, epiglottis, vallecular, and tongue base all appear normal. Extramucosal neck spaces appear unremarkable. Glands: Parotid and submandibular glands appear normal. Thyroid gland appears normal. Miscellaneous: Visualized brain and orbits appear unremarkable. Superficial soft tissues appear normal. Visualized sinuses and mastoids are clear. CHEST: Lungs and pleura: No acute airspace opacities. 3 mm pulmonary nodule in the posterior right upper lobe is unchanged from 2012. Atelectasis/scarring right lower lobe, associated with elevated right hemidiaphragm. Calcified granulomata. No pleural effusions or pneumothorax. Central and peripheral airways are patent and normal in caliber. Mediastinum: Heart size is normal. Coronary artery calcifications. No pericardial effusion. No mediastinal or hilar adenopathy by size criteria. Thoracic aorta and central pulmonary arteries are normal in size. Esophagus is normal in size. No hiatal hernia. Chest wall: Median sternotomy. No axillary adenopathy by size criteria. ABDOMEN: Solid organs: Liver and spleen are normal in size. Liver shows homogeneous decreased attenuation. No suspicious filling defects. Gallbladder appears clear. Biliary system is non dilated. Pancreas enhances normally. No adrenal nodules. Both kidneys are normal in size and enhancement, without hydronephrosis. 3 cm and 10 cm exophytic simple cyst upper pole right kidney and 1 cm cortical cyst right interpolar region. Peritoneum and bowel: Bowel loops are normal in caliber and wall thickness. Status post partial right hemicolectomy with no recurrent tumor around the anastomosis. Circumscribed fat filled area in the right lower quadrant compatible with chronic fat necrosis. No free fluid or air. Nodes and vessels: There is a 24 mm mesenteric lymph node anterior to the head of pancreas, series 2/image 67, increased from 15 mm on exam of 09/22/2014 and measuring 12 mm on 02/15/2016. A left para-aortic lymph node, image 74, measures 16 mm, new since prior 2014 exam, and increased from [address] Aorta and inferior vena cava are normal in caliber. Miscellaneous: No ventral hernias. PELVIS: Genitourinary: Bladder wall thickness is normal. Pelvic artifact from bilateral total hip prostheses. Visualized prostate and seminal vesicles appear normal. Miscellaneous: No inguinal hernias or adenopathy. Bones: No suspicious bony lesions. No vertebral body compression fractures. IMPRESSION: 1. No cervical adenopathy suggestive of metastatic disease. 2. Benign 3 mm right upper lobe pulmonary nodule is again unchanged. 3. Elevation right hemidiaphragm with compressive atelectasis right lower lobe is unchanged. 4. Enlarged mesenteric and periaortic lymph nodes are of concern for anoop metastases. PET/CT imaging suggested. 5. Status post right colon resection. Focal area of fat necrosis right lower quadrant. 6. Benign cystic changes right kidney. Dictated by: David Marrero M.D. on 10/23/2016 at 12:30 Approved by: David Marrero M.D. on 10/23/2016 at 12:30 Assessment & Plan Patient is a 71-year-old pleasant obese white male with history of COPD on 3 L of home O2 per nasal cannula and bovine aortic valve replacement on aspirin and Plavix who presents to [facility] emergency department due to shortness of breath is worse with exertion that has been progressively worsening over the last 2 weeks. The symptoms are somewhat her previous COPD exacerbations. He has been using nebulizers at home with no improvement and albuterol 3-4 times a day. Patient was started on prednisone 3 days ago by his primary care physician for this problem and has had no improvement in symptoms. Patient denies fever, chills, chest pain, nausea and vomiting, cough. He has had no recent illness. He does report that he has a history of colon cancer and more recent most recently a CAT scan showed "spots" in his abdomen. He was going to go for a another scan which he does not know the name of but could not hold his arms up in the air long enough for the procedure. Patient was evaluated by Dr. Kaden Duncan and had a chest x-ray which showed chronic right hemidiaphragm elevation with right basilar opacity which may be pneumonia or atelectasis. Patient received 125 mg of IV methylprednisolone, 600 mg of by mouth azithromycin and DuoNeb treatments 3 the above treatments repeated with the above treatment patient reported mild symptom improvement bone ambulated on his baseline 3 L of oxygen as he continued to desaturate into the 80s and became significantly dyspneic overall presentation was consistent with a COPD exacerbation and patient was admitted to the hospital service for further evaluation and treatment. Increased Hypoxia with dyspnea on exertion with history of COPD on 3 L of oxygen per nasal cannula at home. This is consistent with acute on chronic respiratory failure. -History of valve replacement and coronary disease and slight elevation in BNP, would be concerned about congestive heart failure. Checked repeat BNP is 290 today supporting a diagnosis of acute and chronic congestive heart failure likely diastolic and systolic dysfunction. Will check echocardiogram in a.m. -With History of colon cancer might be concerned about pulmonary embolism so will check CT angiogram of the chest. -Suspect this is due to acute on chronic respiratory failure secondary to an exacerbation of COPD with elevated right hemidiaphragm and right lower lobe compressive atelectasis with little room for preserved. -Continue IV SoluMedrol 60 mg IV every 6 hours -Continue Azithromycin 500 mg IV daily-continue SVN treatments History of colon cancer with most recent CT scan showing some mesenteric lymphadenopathy. -Patient will need follow-up PET/CT scan as an outpatient. He is to follow-up with oncology for this. -Check d-dimer as patient may have a hypercoagulable state -Patient is allergic to aid the contrast dye, therefore VQ scan was performed which showed low probability for pulmonary embolism. Obstructive sleep apnea -Continue CPAP as at home Hypertension -Continue home metoprolol and lisinopril. -We will add daily by mouth Lasix -Continue to monitor History of asthma as a child -Continue current treatment as above History of coronary artery disease -No evidence for acute coronary syndrome as of yet -will check troponin again in a.m. -Continue to monitor closely Disposition: As patient is likely to be here more than 2 nights to evaluate and treat the above problems, will admit as an inpatient. Pain Evaluation: Adequate Pain Control GI Prophylaxis: Proton Pump Inhibitor VTE Prophylaxis: Sub-Q Enoxaparin VTE Mechanical Devices: Venous Foot Pump Resuscitation Status: CPR: Attempt Resuscitation Everette Baig MD Dec 01, 2016 23:14
--- NOTE | 2016-12-10 13:22 | PCM.DC.MED ---
Discharge Summary Date of Service Dec 01, 2016 Dates of Hospitalization Date of Hospital Admission Nov 29, 2016 at 10:17 Date of Discharge: Dec 01, 2016 Providers: Admitting Physician: Everette Baig MD Primary Care Physician: Cleo Ellison MD Attending Physician: Everette Baig MD Diagnosis at Time of Discharge Diagnosis at Time of Discharge Congestive Heart failure with Hypoxia Procedures XRay, CTs & MRIs PROCEDURE: X-RAY CHEST ONE VIEW, PORTABLE ([id number]) INDICATIONS: breathing problems TECHNIQUE: One view of the chest was acquired. COMPARISON: [facility], CT, CT NECK CHEST ABD PELVIS W CON, 2015, 11:05. [facility], CR, CHEST 2VW, 09/01/2016, 10:56 AM. [facility], CR, CHEST 1VW (PORTABLE), 06/27/2012, 14:46. FINDINGS: Surgical changes and devices: Sternotomy and a prosthetic heart valve. Lungs and pleura: There is chronic right hemidiaphragm elevation. Right basilar opacity may be infiltrate or atelectasis. No pleural effusions or pneumothorax. Lungs are clear. Mediastinum: Mediastinal contours appear normal. Heart size is normal. Bones and chest wall: No suspicious bony lesions. Overlying soft tissues appear unremarkable. IMPRESSION: Chronic right hemidiaphragm elevation. Right basilar opacity may be pneumonia or atelectasis. Dictated by: Esteban Dias M.D. on 11/29/2016 at 9:20 Approved by: Esteban Dias M.D. on 11/29/2016 at 9:21 PROCEDURE: CT NECK/CHEST/ABD/PEL W/CONT ([id number]) INDICATIONS: H/O COLON CANCER, RIGHT SUPRACLAVICULAR NODE TECHNIQUE: After the administration of oral and intravenous contrast, 3.0 mm axial sections acquired from the sella to the aortic arch, with 3.0 mm thick coronal reformats. Additional oblique axial 3.0 mm sections acquired through the pharynx. 5 mm thick axial sections then acquired from the lung apices to the symphysis, with subsequent 5 mm thick coronal and sagittal reformats, and 7 mm thick coronal MIP reformats through the lungs. For radiation dose reduction, the following was used: automated exposure control, adjustment of mA and/or kV according to patient size. COMPARISON: CT abdomen and pelvis 02/15/2016; CT CAPD 10/15/2015; CT chest 2013; CT abdomen and pelvis 09/22/2014 FINDINGS: Image quality: Excellent. NECK: Lymph nodes: No enlarged lymph nodes seen throughout the neck. There is a 9 mm short diameter level III node adjacent to the right internal jugular vein. BB marker over a palpable node in the right supraclavicular region shows a 7 mm short diameter fat replaced lymph node in the subadjacent tissues. Vessels: Visualized vasculature appears patent. Neck spaces: The oropharynx, nasopharynx, and pharynx demonstrate no mucosal lesions. The vocal cords, false vocal cords, pyriform sinuses, epiglottis, vallecular, and tongue base all appear normal. Extramucosal neck spaces appear unremarkable. Glands: Parotid and submandibular glands appear normal. Thyroid gland appears normal. Miscellaneous: Visualized brain and orbits appear unremarkable. Superficial soft tissues appear normal. Visualized sinuses and mastoids are clear. CHEST: Lungs and pleura: No acute airspace opacities. 3 mm pulmonary nodule in the posterior right upper lobe is unchanged from 2012. Atelectasis/scarring right lower lobe, associated with elevated right hemidiaphragm. Calcified granulomata. No pleural effusions or pneumothorax. Central and peripheral airways are patent and normal in caliber. Mediastinum: Heart size is normal. Coronary artery calcifications. No pericardial effusion. No mediastinal or hilar adenopathy by size criteria. Thoracic aorta and central pulmonary arteries are normal in size. Esophagus is normal in size. No hiatal hernia. Chest wall: Median sternotomy. No axillary adenopathy by size criteria. ABDOMEN: Solid organs: Liver and spleen are normal in size. Liver shows homogeneous decreased attenuation. No suspicious filling defects. Gallbladder appears clear. Biliary system is non dilated. Pancreas enhances normally. No adrenal nodules. Both kidneys are normal in size and enhancement, without hydronephrosis. 3 cm and 10 cm exophytic simple cyst upper pole right kidney and 1 cm cortical cyst right interpolar region. Peritoneum and bowel: Bowel loops are normal in caliber and wall thickness. Status post partial right hemicolectomy with no recurrent tumor around the anastomosis. Circumscribed fat filled area in the right lower quadrant compatible with chronic fat necrosis. No free fluid or air. Nodes and vessels: There is a 24 mm mesenteric lymph node anterior to the head of pancreas, series 2/image 67, increased from 15 mm on exam of 09/22/2014 and measuring 12 mm on 02/15/2016. A left para-aortic lymph node, image 74, measures 16 mm, new since prior 2014 exam, and increased from [address] Aorta and inferior vena cava are normal in caliber. Miscellaneous: No ventral hernias. PELVIS: Genitourinary: Bladder wall thickness is normal. Pelvic artifact from bilateral total hip prostheses. Visualized prostate and seminal vesicles appear normal. Miscellaneous: No inguinal hernias or adenopathy. Bones: No suspicious bony lesions. No vertebral body compression fractures. IMPRESSION: 1. No cervical adenopathy suggestive of metastatic disease. 2. Benign 3 mm right upper lobe pulmonary nodule is again unchanged. 3. Elevation right hemidiaphragm with compressive atelectasis right lower lobe is unchanged. 4. Enlarged mesenteric and periaortic lymph nodes are of concern for anoop metastases. PET/CT imaging suggested. 5. Status post right colon resection. Focal area of fat necrosis right lower quadrant. 6. Benign cystic changes right kidney. Dictated by: David Marrero M.D. on 10/23/2016 at 12:30 Approved by: David Marrero M.D. on 10/23/2016 at 12:30 PROCEDURE: NM LUNG VQ RADIOPHARMACEUTICAL: 24.5 mCi Tc-99m DTPA aerosol by inhalation and 5.2 mCi Tc- 99m MAA intravenously. INDICATIONS: Hypoxia and Dyspnea TECHNIQUE: Ventilation images were obtained first with Tc-99m DTPA aerosol. Subsequently, perfusion images were acquired after intravenous injection of Tc-99m MAA. Anterior, posterior, CHAUDHARY, MARCELO, RPO, LPO, left and right lateral views were obtained. COMPARISON: [facility], CR, XR CHEST 2VW, 11/30/2016, 10:40. FINDINGS: Mildly heterogeneous ventilation and perfusion is present in the perihilar locations. Ventilation and perfusion is otherwise within normal limits. IMPRESSION: Low probability for pulmonary embolus. Dictated by: Christen Hatfield M.D. on 11/30/2016 at 13:54 Approved by: Christen Hatfield M.D. on 11/30/2016 at 13:5 Cardiac Echo Impression Echocardiogram Name: GLORIA RIVAS Study Date: 11/30/2016 Jannet ht: 66 in Hospital Exam Location: [facility] Jyoti ht: 295 lb Gender: Male BSA: 2.4 m2 : 1945 Age: 71 yrs BP: 130/76 mmHg Reason For Study: Hypoxia History: CAD, AVR-bioprosthetic Ordering Physician: HOSPITALIST [facility] Performed By: Shani Olivo Referring Physician: DR. Keren ELLISON, DR. Indira ROMAN Interpretation Summary The study quality was technically difficult. The left ventricle is normal in size. The ejection fraction is estimated to be 50-55%. There is septal wall hypokinesis. Compared to the prior exam, the left ventricular function is reduced. The right ventricle is not well visualized. Right ventricular systolic function is moderately reduced. Right ventricular systolic function has decreased since previous exam. There is a bioprosthetic aortic valve. The prosthetic aortic valve is not well visualized. The peak aortic velocity is 2.57 m/sec. The peak aortic velocity on the previous exam was 2.6 m/sec. The aortic valve mean gradient is 15.2 mmHg. Brief History Patient is a 71-year-old pleasant obese white male with history of COPD on 3 L of home O2 per nasal cannula and bovine aortic valve replacement on aspirin and Plavix who presents to [facility] emergency department due to shortness of breath is worse with exertion that has been progressively worsening over the last 2 weeks. The symptoms are somewhat her previous COPD exacerbations. He has been using nebulizers at home with no improvement and albuterol 3-4 times a day. Patient was started on prednisone 3 days ago by his primary care physician for this problem and has had no improvement in symptoms. Patient denies fever, chills, chest pain, nausea and vomiting, cough. He has had no recent illness. He does report that he has a history of colon cancer and more recent most recently a CAT scan showed "spots" in his abdomen. He was going to go for a another scan which he does not know the name of but could not hold his arms up in the air long enough for the procedure. Patient was evaluated by Dr. Kaden Duncan and had a chest x-ray which showed chronic right hemidiaphragm elevation with right basilar opacity which may be pneumonia or atelectasis. Patient received 125 mg of IV methylprednisolone, 600 mg of by mouth azithromycin and DuoNeb treatments 3 the above treatments repeated with the above treatment patient reported mild symptom improvement bone ambulated on his baseline 3 L of oxygen as he continued to desaturate into the 80s and became significantly dyspneic overall presentation was consistent with a COPD exacerbation and patient was admitted to the hospital service for further evaluation and treatment. Hospital Course Patient is a 71-year-old pleasant obese white male with history of COPD on 3 L of home O2 per nasal cannula and bovine aortic valve replacement on aspirin and Plavix who presents to [facility] emergency department due to shortness of breath is worse with exertion that has been progressively worsening over the last 2 weeks. The symptoms are somewhat her previous COPD exacerbations. He has been using nebulizers at home with no improvement and albuterol 3-4 times a day. Patient was started on prednisone 3 days ago by his primary care physician for this problem and has had no improvement in symptoms. Patient denies fever, chills, chest pain, nausea and vomiting, cough. He has had no recent illness. He does report that he has a history of colon cancer and more recent most recently a CAT scan showed "spots" in his abdomen. He was going to go for a another scan which he does not know the name of but could not hold his arms up in the air long enough for the procedure. Patient was evaluated by Dr. Kaden Duncan and had a chest x-ray which showed chronic right hemidiaphragm elevation with right basilar opacity which may be pneumonia or atelectasis. Patient received 125 mg of IV methylprednisolone, 600 mg of by mouth azithromycin and DuoNeb treatments 3 the above treatments repeated with the above treatment patient reported mild symptom improvement bone ambulated on his baseline 3 L of oxygen as he continued to desaturate into the 80s and became significantly dyspneic overall presentation was consistent with a COPD exacerbation and patient was admitted to the hospital service for further evaluation and treatment. Increased Hypoxia with dyspnea on exertion with history of COPD on 3 L of oxygen per nasal cannula at home. This is consistent with acute on chronic respiratory failure. -History of valve replacement and coronary disease and slight elevation in BNP, would be concerned about congestive heart failure. Checked repeat BNP is 290 today supporting a diagnosis of acute and chronic congestive heart failure likely diastolic and systolic dysfunction. Will check echocardiogram in a.m. -With History of colon cancer might be concerned about pulmonary embolism so a VQ scan was performed which showed a low probability of a PE.. -Suspect this is due to acute on chronic respiratory failure secondary to an exacerbation of COPD, with Acute on Chronic Systolic CHF and with elevated right hemidiaphragm and right lower lobe compressive atelectasis with little room for reserve. -Change IV SoluMedrol to tapering doses of Prednisone. -Change Azithromycin to PO. History of colon cancer with most recent CT scan showing some mesenteric lymphadenopathy. -Patient will need follow-up PET/CT scan as an outpatient. He is to follow-up with oncology for this. -Check d-dimer as patient may have a hypercoagulable state -Patient is allergic to aid the contrast dye, therefore VQ scan was performed which showed low probability for pulmonary embolism. Obstructive sleep apnea -Continue CPAP as at home Hypertension -Continue home metoprolol and lisinopril. -We will add daily by mouth Lasix -Continue to monitor History of asthma as a child -Continue current treatment as above History of coronary artery disease -No evidence for acute coronary syndrome as of yet -will check troponin again in a.m. -Continue to monitor closely Disposition: Patient is feeling much better and will be discharged home today. Exam Exam General: Patient is in no apparent distress sitting up on the side of the bed. He indicates that he is feeling much better. HEENT: Head is atraumatic normocephalic. Eyes: Pupils are equally round and reactive to light and accommodation. Extraocular muscles are intact. Sclera are white anicteric. Subconjunctival mucosa is pink. Ears and nose are unremarkable. Oropharynx: There is no mucosal lesions, there is no thrush, there is no pharyngitis. There is a upper plate of dentures in place. Neck: Is supple, there are no nodes, or masses or tenderness. Chest: Is clearer to auscultation and percussion so for decreased breath sounds at the right base as before. There are no rales, rhonchi, wheezes or rubs. Again there is decreased breath sounds at the right base as before. Heart: Rate, rhythm is regular. There is no new murmur, rub or gallop. Abdomen: Good bowel sounds are present. Abdomen is obese, soft, nontender, no organomegaly or masses were appreciated. Extremities: Are symmetrical and well perfused. There is no edema, there is no cellulitis, no rash. Neurologic: There are no focal neurological deficits. Cranial nerves II through XII are intact. There are no sensory or motor deficits. Psychiatric: Patients mood is calm and shows no sign of agitation. Genital: Deferred Rectal: Deferred Test 11/29/16 09:10 11/29/16 20:26 11/30/16 06:30 11/30/16 07:40 Troponin T 0.010ug/L (0.0-0.011) Hold Carter Top Tube Received (Received) Urine Color Yellow (YELLOW) Urine Appearance Clear (CLEAR,HAZY) Urine pH 5.5 (5.0-8.0) Urine Specific [place] 1.025 (1.003-1.035) Urine Protein Negativemg/dL (NEG,TRACE) Urine Glucose (UA) 100mg/dL (NEGATIVE) Urine Ketones Tracemg/dL (NEGATIVE) Urine Occult Blood Negative (NEGATIVE) Urine Nitrite Negative (NEGATIVE) Urine Bilirubin Negative (NEGATIVE) Urine Urobilinogen Normalmg/dL (NORMAL) Urine Leukocyte Esterase Negative (NEGATIVE) Urine RBC 0-2/hpf (0-2) Urine WBC 0-5/hpf (0-5) Urine Epithelial Cells Occasional/hpf (NONE-MOD) Urine Crystals None seen (NONE SEEN) Urine Bacteria None/hpf (NONE-FEW) Urine Hyaline Casts None/lpf (NONE) Urine Granular Casts None seen (NONE SEEN) Urine Waxy Casts None seen (NONE SEEN) Urine Red Blood Cell Casts None seen (NONE SEEN) Urine White Blood Cell Casts None seen (NONE SEEN) Urine Mucus None seen (None Seen) Urine Trichomonas None seen (NONE SEEN) Urine Yeast None (NONE SEEN) Urinalysis Comment Nn Urine Culture Reflexed Not indicated Erythrocyte Sedimentation Rate 8mm/hr (0-30) Phosphorus Level 3.8mg/dL (2.5-4.9) Magnesium Level 2.1mg/dL (1.6-2.6) C-Reactive Protein 0.4mg/dL (0.0-0.5) Pro-B-Type Natriuretic Peptide 290.1pg/mL (0-376) Thyroid Stimulating Hormone (TSH) 0.737uIU/mL (0.450-4.500) D-Dimer 0.9mg/L (<0.50) Test 12/01/16 07:10 White Blood Count 9.6th/mm3 (3.8-10.1) Red Blood Count 4.33mil/mm3 (4.40-5.80) Hemoglobin 13.2g/dL (13.8-17.2) Hematocrit 40.5% (41.0-50.0) Mean Corpuscular Volume 93.5fL (81-100) Mean Corpuscular Hemoglobin 30.5pg (27.0-35.0) Mean Corpuscular Hemoglobin Concent 32.6% (32.0-37.0) Red Cell Distribution Width 13.5% (12.3-15.4) Platelet Count 158bil/L (150-400) Neutrophils (%) (Auto) 90.0% (40-74) Lymphocytes (%) (Auto) 6.2% (14-46) Monocytes (%) (Auto) 2.7% (4-12) Eosinophils (%) (Auto) 0.1% (0-5) Basophils (%) (Auto) 0.1% (0-3) Prothrombin Time 10.5sec (8.1-12.5) Prothromb Time International Ratio 0.98ratio Sodium Level 140mEq/L (134-144) Potassium Level 4.5mEq/L (3.5-5.2) Chloride Level 101mEq/L (97-108) Carbon Dioxide Level 23mmol/L (18-29) Blood Urea Nitrogen 35mg/dL (8-27) Creatinine 1.31mg/dL (0.76-1.27) Estimat Glomerular Filtration Rate 57mL/min (>59) Glucose Level 199mg/dL (60-99) Calcium Level 8.8mg/dL (8.5-10.1) Total Bilirubin 0.3mg/dL (0.0-1.2) Aspartate Amino Transf (AST/SGOT) 14U/L (0-50) Alanine Aminotransferase (ALT/SGPT) 30U/L (0-44) Alkaline Phosphatase 52U/L (25-160) Total Protein 5.8g/dL (6.4-8.4) Albumin 3.6g/dL (3.4-5.0) Microbiology Results Blood cultures are pending Discharge Medications Discharge Medications Aclidinium Antigo (Tudorza Pressair) 400 Mcg Aer.pow.ba 400 MCG IH BID ( Reported) Albuterol Sulfate (Proair Respiclick) 90 Mcg Aer.pow.ba 90 MCG IH QID (Reported ) Aspirin (Aspirin) 81 Mg Tablet 81 MG PO DAILY (Reported) Atorvastatin Calcium (Atorvastatin Calcium) 20 Mg Tablet 20 MG ORAL HS (Reported ) Azithromycin (Zithromax) 250 Mg Tablet 500 MG PO DAILY Prescribed by: PASHA BAIG MD Clopidogrel Bisulfate (Plavix) 75 Mg Tablet 75 MG PO DAILY (Reported) Furosemide (Furosemide) 20 Mg Tab 20 MG PO DAILY Prescribed by: PASHA BAIG MD Gabapentin (Gabapentin) 100 Mg Capsule 100-300 MG ORAL HS (Reported) Lisinopril (Lisinopril) 10 Mg Tablet 10 MG PO DAILY (Reported) Metoprolol Tartrate (Metoprolol Tartrate) 25 Mg Tablet 25 MG PO BID (Reported) Nitroglycerin SL (Nitroglycerin SL) 0.4 Mg Tab.subl 0.4 MG SL ASDIRECTED ( Reported) Prednisone (Deltasone) 20 Mg Tablet 5 MG PO DAILY Take 4 tabs for three days Then take 3 tabs for 3 days Then take 2 tabs for 3 days Then take 1 tab for 3 days Prescribed by: PASHA BAIG MD As needed Albuterol Neb Soln (Albuterol Neb Soln) 2.5 Mg/3 Ml Vial.neb 2.5 MG INHALATION Q4H PRN PRN For Shortness of Breath (Reported) Followup Plan Disposition: The patient is being discharge home with his . Discharge Diet: Heart Healthy Discharge Activity: No restrictions (May increase gradually as tolerated) Follow-up Provider: Cleo Ellison MD Follow-up with PCP in: 1 week (Patient needs cardiology follow up.) Time spent The time taken to discharge this patient was over 35 minutes, over half of which was involved in counseling and coordination of care. Everette Baig MD Dec 10, 2016 13:22
[2017-03-06] MEDS ORDERED: [UNRECOGNIZED DRUG - SUPPLY] INH (11:22)
== END 2016-12-01 15:20 | disposition home or self-care (01) | DRG 189 ==
LOC: SED 07:46 → MOC 10:17 → UNDOADMIN 10:17 → MOC 11:03
PROVIDERS: ADMIT Internal Medicine Infectious Disease; ATTEND Internal Medicine Infectious Disease
DX: J96.21 Acute and chronic respiratory failure with hypoxia (principal); J44.1 Chronic obstructive pulmonary disease with (acute) exacerbation; G47.33 Obstructive sleep apnea (adult) (pediatric); I10 Essential (primary) hypertension; Z95.2 Presence of prosthetic heart valve; Z87.891 Personal history of nicotine dependence; Z95.5 Presence of coronary angioplasty implant and graft; Z99.81 Dependence on supplemental oxygen; Z79.52 Long term (current) use of systemic steroids; Z79.82 Long term (current) use of aspirin

== ENCOUNTER 2017-07-29 13:46 | Emergency (ER) | payer MEDICARE, OTHER ==
[~2017-07-29 13:46] MED LIST changes: -ALBU90AE IH; +ATOR20TA65 ORAL; +GABA-500 ORAL; -IPRA3AMP IH; -NITR0.4T6 SL; -SIMV20TA4 PO; -SYMINH INHALATION; -[UNRECOGNIZED DRUG - OTHER]
[2017-07-29 13:47] VITALS: BP 150/71; PULSE 109; RESP 26; O2SAT 93
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
[2017-07-29 15:53] VITALS: BP 134/61; PULSE 85; RESP 24; O2SAT 95
== END 2017-07-29 16:10 | disposition home or self-care (01) ==
LOC: SED 13:46 → EDBD 13:46 → SED 16:10
DX: S00.03XA Contusion of scalp, initial encounter (principal); V00.838A Other accident with motorized mobility scooter, initial encounter; Y93.I9 Activity, other involving external motion; Y92.828 Other wilderness area as the place of occurrence of the external cause; Y99.8 Other external cause status; I10 Essential (primary) hypertension; I25.10 Atherosclerotic heart disease of native coronary artery without angina pectoris; J45.909 Unspecified asthma, uncomplicated; J44.9 Chronic obstructive pulmonary disease, unspecified; G47.33 Obstructive sleep apnea (adult) (pediatric); Z99.81 Dependence on supplemental oxygen; Z85.038 Personal history of other malignant neoplasm of large intestine; Z98.61 Coronary angioplasty status; Z95.3 Presence of xenogenic heart valve; Z90.49 Acquired absence of other specified parts of digestive tract; Z98.890 Other specified postprocedural states; Z79.82 Long term (current) use of aspirin; Z87.891 Personal history of nicotine dependence; Z88.2 Allergy status to sulfonamides; Z88.6 Allergy status to analgesic agent; Z79.01 Long term (current) use of anticoagulants; Z88.8 Allergy status to other drugs, medicaments and biological substances